=== PATIENT | male | born 1960 | race Caucasian/White ===

== ENCOUNTER → 2020-04-25 | Outpatient (CLI) | payer OTHER ==
[~2020-04-25] MED LIST: ADVIL100 M2; ALEVE COLD & S1 EACH PO; ALEVE220 MG PO; AVAPRO PO; AVAPRO300 MG PO; COLACE100 MG PO; DEPO-TESTO100 MG/1 M; FISH OIL PO; GLUCOPHAGE500 MG PO; MEDROLDOSEPACK PO; MENS VITAMIN; MIRALAX17 G1 PO; OMEPRAZOLE40 MG PO; PRILOSEC40 MG PO; PROTONIX40 M1 PO; TYLENOL325 MG PO; VIT D PO; VITAMIN B-12500 MCG PO; ZOCOR 20 MG TAB20 M1 PO
== END ==
LOC: M.RAD 16:24
PROVIDERS: ATTEND Registered Nurse Diabetes Educator
DX: L03.115 Cellulitis of right lower limb (principal); M79.89 Other specified soft tissue disorders